=== PATIENT | female | born 1995 | race Caucasian/White ===

== ENCOUNTER 2017-07-31 22:49 | Emergency (ER) | payer BC, OTHER ==
[~2017-07-31] VITALS: Ht 167.6 cm; Wt 87.1 kg
[~2017-07-31 22:49] MED LIST: BCPILLS PO; PHEN95TA10 PO
[2017-07-31 22:52] VITALS: TEMP 36; Ht 167.6 cm; Wt 87.1 kg
[2017-07-31] MEDS ORDERED: ONDANSETRON INJ 2 MG/ML 2 ML VIAL IV STA (23:05)
[2017-07-31] MEDS ORDERED: SODIUM CHLORIDE 0.9% 1000ML 1,000 ML IV STA (23:05)
--- NOTE | 2017-07-31 23:09 | EMERGENCY ROOM VISIT NOTE ---
History Report prepared by Brock: Mikey Field Under the Supervision of: Dr. Mariam Yu D.O. First contact with patient: 22:55 Chief Complaint: VOMITING Stated Complaint: VOMITING,CHEST PAIN History of Present Illness The patient is a 21 year old female who presents to the Emergency Room with complaints of persistent vomiting and diarrhea that began at 1700 today, 6 hours prior to arrival. The patient states that her symptoms began at 1700 today while she was at work. The vomiting episodes onset first. Since this time she has also experienced multiple bouts of diarrhea, dizziness, abdominal pain, and chest pain. The abdominal pain began after the vomiting. She has also felt chills and has been sweaty. The patient works at a [employer] and states that she could have multiple sick contacts. She denies eating any unusual/poor tasting foods. She also denies any chance of or recent travels. 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 A total of 10 systems reviewed and were otherwise negative. Past Medical & Surgical Medical Problems: (1) Hypertension Family History Heart disease Hypertension Social History Smoking Status: Never Smoker Marital Status: in relationship Housing Status: lives with family Occupation Status: employed Current/Historical Medications Scheduled Dicyclomine Hcl (Bentyl), 20 MG PO Q8 Drospirenone-Ethinyl Estradiol ([place]), 1 TAB PO DAILY Prochlorperazine Maleate (Compazine), 5 MG PO Q8 Allergies Coded Allergies: Codeine (Verified Adverse Reaction, Mild, HTN and vomiting, 07/31/17) Physical Exam Vital Signs Date Time Temp Pulse Resp B/P (MAP) Pulse Ox O2 Delivery O2 Flow Rate FiO2 08/01/17 01:31 100 20 139/82 100 Room Air 07/31/17 22:52 36.0 125 20 145/84 100 Room Air Physical Exam GENERAL: alert, well appearing, well nourished, no distress, non-toxic EYE EXAM: normal conjunctiva, PERRL and EOM's grossly intact OROPHARYNX: no exudate, no erythema, lips, buccal mucosa, and tongue normal and mucous membranes are DRY. NECK: supple, no nuchal rigidity, no adenopathy, non-tender LUNGS: Clear to auscultation. Normal chest wall mechanics HEART: no murmurs, S1 normal and S2 normal ABDOMEN: abdomen soft, with mild upper quadrant pain, normo-active bowel sounds , no masses, no rebound or guarding. BACK: Back is symmetrical on inspection and there is no deformity, no midline tenderness, no CVA tenderness. SKIN: no rashes and no bruising UPPER EXTREMITIES: upper extremities are grossly normal. LOWER EXTREMITIES: No pitting edema. NEURO EXAM: Normal sensorium Medical Decision & Procedures ER Provider Diagnostic Interpretation: Radiology results have been interpreted by the radiologist and reviewed by me. Chest: A two view study of the chest: X-ray was reviewed and was negative for infiltrate, effusion, pneumothorax, or wide mediastinum. ABDOMINAL X-RAY: Abdominal x-ray was negative for SBO, no free air. Scattered air and stool present. Laboratory Results 07/31/17 23:15 Red Blood Count 4.82, Mean Corpuscular Volume 86.3, Mean Corpuscular Hemoglobin 29.5, Mean Corpuscular Hemoglobin Concent 34.1, Mean Platelet Volume 11.6, Neutrophils (%) (Auto) 91.6, Lymphocytes (%) (Auto) 4.0, Monocytes (%) (Auto) 3.6, Eosinophils (%) (Auto) 0.5, Basophils (%) (Auto) 0.1, Neutrophils # (Auto) 15.05, Lymphocytes # (Auto) 0.66, Monocytes # (Auto) 0.60, Eosinophils # (Auto) 0.09, Basophils # (Auto) 0.01 07/31/17 23:15 Test 07/31/17 23:15 07/31/17 23:30 White Blood Count 16.45 K/uL (4.8-10.8) Red Blood Count 4.82 M/uL (4.2-5.4) Hemoglobin 14.2 g/dL (12.0-16.0) Hematocrit 41.6 % (37-47) Mean Corpuscular Volume 86.3 fL (80-100) Mean Corpuscular Hemoglobin 29.5 pg (25-34) Mean Corpuscular Hemoglobin Concent 34.1 g/dl (32-36) Platelet Count 310 K/uL (130-400) Mean Platelet Volume 11.6 fL (7.4-10.4) Neutrophils (%) (Auto) 91.6 % Lymphocytes (%) (Auto) 4.0 % Monocytes (%) (Auto) 3.6 % Eosinophils (%) (Auto) 0.5 % Basophils (%) (Auto) 0.1 % Neutrophils # (Auto) 15.05 K/uL (1.4-6.5) Lymphocytes # (Auto) 0.66 K/uL (1.2-3.4) Monocytes # (Auto) 0.60 K/uL (0.11-0.59) Eosinophils # (Auto) 0.09 K/uL (0-0.5) Basophils # (Auto) 0.01 K/uL (0-0.2) RDW Standard Deviation 40.4 fL (36.4-46.3) RDW Coefficient of Variation 12.7 % (11.5-14.5) Immature Granulocyte % (Auto) 0.2 % Immature Granulocyte # (Auto) 0.04 K/uL (0.00-0.02) Anion Gap 10.0 mmol/L (3-11) Est Creatinine Clear Calc Drug Dose 108.4 ml/min Estimated GFR () 103.9 Estimated GFR (Non- 89.6 BUN/Creatinine Ratio 18.2 (10-20) Calcium Level 9.2 mg/dl (8.5-10.1) Total Bilirubin 0.4 mg/dl (0.2-1) Aspartate Amino Transf (AST/SGOT) 25 U/L (15-37) Alanine Aminotransferase (ALT/SGPT) 52 U/L (12-78) Alkaline Phosphatase 96 U/L (45-117) Total Protein 8.6 gm/dl (6.4-8.2) Albumin 4.0 gm/dl (3.4-5.0) Globulin 4.6 gm/dl (2.5-4.0) Albumin/Globulin Ratio 0.9 (0.9-2) Lipase 78 U/L (73-393) Human Chorionic Gonadotropin, Qual NEG (NEG) Influenza Type A Antigen Neg for Influ A (NEG) Influenza Type B Antigen Neg for Influ B (NEG) Laboratory results per my review. Medications Administered Medications (Trade) Dose Ordered Sig/Charli Route Start Time Stop Time Status Last Admin Dose Admin Sodium Chloride 1,000 ml @ 999 mls/hr Q1H1M STAT IV 07/31/17 23:05 08/01/17 00:05 DC 07/31/17 23:26 999 MLS/HR Ondansetron HCl (Zofran Inj) 4 mg NOW STAT IV 07/31/17 23:05 07/31/17 23:07 DC 07/31/17 23:26 4 MG Dicyclomine HCl (Bentyl Cap) 20 mg NOW ONCE PO 08/01/17 00:00 08/01/17 00:01 DC 08/01/17 00:33 20 MG Sodium Chloride 1,000 ml @ 999 mls/hr Q1H1M STAT IV 08/01/17 00:15 08/01/17 01:15 DC 08/01/17 00:40 999 MLS/HR Prochlorperazine Edisylate (Compazine Inj) 5 mg NOW STAT IV 08/01/17 00:15 08/01/17 00:16 DC 08/01/17 00:34 5 MG Diphenhydramine HCl (Benadryl Inj) 12.5 mg NOW STAT IV 08/01/17 00:15 08/01/17 00:16 DC 08/01/17 00:33 12.5 MG ED Course 2258: The patient was evaluated in room B3. A complete history and physical exam was performed. 2305: Ordered Zofran 4 mg IV, Sodium Chloride 1000 mL @ 999 mL/hr IV. 0000: Ordered Dicyclomine HCl 20 mg PO. 0014: I reevaluated the patient at this time. There is no change in her status. She is still nauseous. I will order additional medication. 0015: Ordered Benadryl 12.5 mg IV, Compazine 5 mg IV, Sodium Chloride 1000 mL @ 999 mL/hr IV. 0120: Upon reevaluation, the patient is feeling better, She is tolerating PO fluids and feels good to go home. I discussed the findings and the treatment plan with the patient. She verbalizes agreement and understanding. The patient was discharged home. Medical Decision Differential diagnosis: Etiologies such as gastroenteritis, food borne illness, infections, appendicitis , diverticulitis, inflammatory bowel disease, obstruction, GI bleed, biliary pathology, as well as others were entertained. Patient improved here following IV fluids and medications. Likely viral syndrome versus foodborne illness. Patient not immunocompromised no other recent exposures or travel. Patient's labs reassuring. Leukocytosis likely secondary to stress reaction from vomiting and diarrhea, doubt bacteremia/ sepsis. Doubt acute infectious colitis, mesenteric ischemia, volvulus, intussusception, peptic ulcer disease, occult GI bleed. Patient tolerated by mouth here, was well-appearing at time of discharge, ambulating with a steady gait, and no longer having any orthostatic symptoms. Medication Reconcilliation Current Medication List: was personally reviewed by me Blood Pressure Screening Patient's blood pressure: Elevated blood pressure Blood pressure disposition: Elevated BP felt to be situational Impression Primary Impression: Nausea, vomiting, and diarrhea Scribe Attestation The scribe's documentation has been prepared under my direction and personally reviewed by me in its entirety. I confirm that the note above accurately reflects all work, treatment, procedures, and medical decision making performed by me. Departure Information Dispostion Home / Self-Care Prescriptions Prochlorperazine Maleate (COMPAZINE) 5 Mg Tab 5 MG PO Q8 for Nausea, #10 TAB Prov: Mariam Yu, DO 08/01/17 Dicyclomine Hcl (BENTYL) 20 Mg Tab 20 MG PO Q8 for Pain, #20 TAB Prov: Mariam Yu, DO 08/01/17 Referrals No Doctor, Assigned (PCP) Patient Instructions My [facility] Additional Instructions Please sip clear liquids at frequent intervals to stay well-hydrated. Please eat a bland diet as tolerated. You may use the cramping medication as well as the nausea medication as provided. If you have any recurrent or worsening vomiting and diarrhea, noticed blood in your vomit or stool, develop fevers or chills, dizziness or passing out, worsening chest pain or trouble breathing, or you've any other new concerns, please return the emergency room.
[2017-07-31] MEDS ORDERED: DROS1TAB24 PO (23:27)
[2017-07-31 23:31] LABS: BASO % 0.1 %; BASO ABS # 0.01 K/uL (0-0.2); EOS % 0.5 %; EOS ABS # 0.09 K/uL (0-0.5); HEMATOCRIT 41.6 % (37-47); HEMOGLOBIN 14.2 g/dL (12.0-16.0); IG# 0.04 K/uL (0.00-0.02); LYMPH ABS # 0.66 K/uL (1.2-3.4); MEAN CELL VOLUME 86.3 fL (80-100); MEAN CORPUSCULAR HEMOGLOBIN 29.5 pg (25-34); MEAN CORPUSCULAR HGB CONC 34.1 g/dl (32-36); MEAN PLATELET VOLUME 11.6 fL (7.4-10.4); MONO % 3.6 %; NEUT % 91.6 %; NEUT ABS # 15.05 K/uL (1.4-6.5); PLATELET COUNT 310 K/uL (130-400); RED CELL DISTRIBUTION WIDTH CV 12.7 % (11.5-14.5); RED CELL DISTRIBUTION WIDTH SD 40.4 fL (36.4-46.3); WHITE BLOOD COUNT 16.45 K/uL (4.8-10.8)
[2017-08-01] MEDS ORDERED: DICYCLOMINE HCL 10 MG CAP PO ONE
[2017-08-01 00:01] LABS: CALCIUM 9.2 mg/dl (8.5-10.1); CREATININE 0.92 mg/dl (0.60-1.20); POTASSIUM 4.1 mmol/L (3.5-5.1)
[2017-08-01 00:04] LABS: TOTAL PROTEIN 8.6 gm/dl (6.4-8.2)
[2017-08-01] MEDS ORDERED: DiphenhydrAMINE HCL 50 MG/ML VIAL IV STA (00:15)
[2017-08-01] MEDS ORDERED: SODIUM CHLORIDE 0.9% 1000ML 1,000 ML IV STA (00:15)
[2017-08-01] MEDS ORDERED: PROCHLORPERAZINE 5 MG/ML 2 ML VIAL IV STA (00:15)
[2017-08-01 00:17] LABS: INFLUENZA B ANTIGEN Neg for Influ B (NEG)
[2017-08-01] MEDS ORDERED: PROC5TAB PO (01:13)
[2017-08-01] MEDS ORDERED: DICY20TA35 PO (01:13)
[2017-08-01 01:31] VITALS: BP 139/82; PULSE 100; O2SAT 100
--- NOTE | 2017-08-01 06:40 | DIAGNOSTIC IMAGING REPORT ---
ABDOMEN 2VIEW W/PA CHEST RTN CLINICAL HISTORY: Nausea, vomiting, diarrhea. COMPARISON STUDY: No previous studies for comparison. FINDINGS: The erect chest reveals no free air. There is no focal pulmonary consolidation. There are no pleural effusions. Erect and supine views the abdomen reveal no abnormally dilated loops of large or small bowel. There are no transition zones indicate bowel obstruction. There are scattered air-fluid levels present within the colon. Left lower quadrant ossifications while nonspecific likely represent phleboliths. IMPRESSION: No evidence of bowel obstruction. No evidence of free air. Electronically signed by: Rangel Mora M.D. 08/01/2017 6:39 AM Dictated Date/Time: 08/01/2017 6:38 AM
== END 2017-08-01 01:33 | disposition home or self-care (01) ==
LOC: C.EDB 22:51
DX: R11.2 Nausea with vomiting, unspecified (principal); R19.7 Diarrhea, unspecified; I10 Essential (primary) hypertension; Z82.49 Family history of ischemic heart disease and other diseases of the circulatory system

== ENCOUNTER 2017-08-04 16:38 | Emergency (ER) | payer OTHER ==
[~2017-08-04] VITALS: Ht 167.6 cm; Wt 86.7 kg
[~2017-08-04 16:38] MED LIST changes: -BCPILLS PO; +DICY20TA35 PO; +DROS1TAB24 PO; -PHEN95TA10 PO; +PROC5TAB PO
[2017-08-04 16:42] VITALS: Ht 167.6 cm; Wt 86.7 kg
[2017-08-04] MEDS ORDERED: KETOROLAC TROMETHAMINE 30 MG/ML VIAL IV STA (17:08)
[2017-08-04] MEDS ORDERED: ONDANSETRON INJ 2 MG/ML 2 ML VIAL IV STA (17:08)
[2017-08-04] MEDS ORDERED: SODIUM CHLORIDE 0.9% 1000ML 1,000 ML IV STA (17:08)
[2017-08-04] MEDS ORDERED: BCPILLS PO (17:45)
[2017-08-04 17:55] LABS: BASO % 0.5 %; BASO ABS # 0.04 K/uL (0-0.2); EOS % 5.4 %; EOS ABS # 0.47 K/uL (0-0.5); HEMATOCRIT 41.8 % (37-47); HEMOGLOBIN 14.1 g/dL (12.0-16.0); IG# 0.02 K/uL (0.00-0.02); LYMPH ABS # 3.12 K/uL (1.2-3.4); MEAN CORPUSCULAR HEMOGLOBIN 28.7 pg (25-34); MEAN CORPUSCULAR HGB CONC 33.7 g/dl (32-36); MEAN PLATELET VOLUME 11.9 fL (7.4-10.4); MONO % 8.3 %; MONO ABS # 0.72 K/uL (0.11-0.59); NEUT % 49.6 %; PLATELET COUNT 341 K/uL (130-400); RED CELL DISTRIBUTION WIDTH CV 12.4 % (11.5-14.5); RED CELL DISTRIBUTION WIDTH SD 38.6 fL (36.4-46.3); WHITE BLOOD COUNT 8.67 K/uL (4.8-10.8)
[2017-08-04 18:20] LABS: ALBUMIN 3.9 gm/dl (3.4-5.0); CALCIUM 9.4 mg/dl (8.5-10.1); CREATININE 0.78 mg/dl (0.60-1.20); POTASSIUM 3.8 mmol/L (3.5-5.1)
[2017-08-04 18:23] LABS: TOTAL PROTEIN 8.3 gm/dl (6.4-8.2)
--- NOTE | 2017-08-04 18:24 | DIAGNOSTIC IMAGING REPORT ---
BILIARY ULTRASOUND CLINICAL HISTORY: Upper abdominal pain COMPARISON STUDY: No previous studies for comparison. FINDINGS: The pancreas was obscured overlying bowel gas shadowing. The liver was echogenic consistent with hepatic steatosis. There is air presumed focal fatty sparing adjacent to gallbladder. No gallstones are visualized. There is no gallbladder wall thickening. There is no pericholecystic fluid. There is no ductal dilatation. The common bile duct measures 4 mm. There is no right-sided hydronephrosis. IMPRESSION: 1. Nondiagnostic evaluation the pancreas 2. Ultrasonographically normal gallbladder. No ductal dilatation 3. Echogenic liver, a nonspecific finding most often secondary to hepatic steatosis Electronically signed by: Rangel Mora M.D. 08/04/2017 6:22 PM Dictated Date/Time: 08/04/2017 6:21 PM
--- NOTE | 2017-08-04 18:35 | EMERGENCY ROOM VISIT NOTE ---
History First contact with patient: 16:46 Chief Complaint: VOMITING Stated Complaint: VOMITING Nursing Triage Summary: vomiting since thursday. was seen PCP today. told to come to the er History of Present Illness The patient is a 21 year old female who presents to the Emergency Room with complaints of abdominal pain She was here on Thursday for nausea, abdominal pain and diarrhea. She had a CXR, and lab work done which was significant for a WCC of 16. She was sent him with the diagnosis of viral gastritis. She continues to have RLQ abdominal pain that started on Thursday. The pain comes and goes and radiates to her R shoulder. She describes it as a sharp pain that lasts a couple minutes and she rates it as a 7/10 in severity. She continues to have diarrhea (non bloody) and she has been vomiting throughout the weekend and is unable to keep any food down. She has associated chills but no recorded fevers. She denies any dysuria, hematuria, vaginal bleeding, vaginal discharge, rashes, joint pain, shortness of breath or chest discomfort Review of Systems CONSTITUTIONAL: No fever, chills, + sweats or night sweats. No weight loss or weight gain. NEUROLOGIC: No headaches, dizziness or syncopal episodes. HEENT: No hearing or visual changes. No sinus or nasal issues. No mouth sores, thrush or oral lesions. CARDIOVASCULAR: No chest pain or palpitations. RESPIRATORY: No SOB, dyspnea, cough or hemoptysis. GASTROINTESTINAL:+ nausea, vomiting, diarrhea, no constipation, reflux, melena or hematochezia. GENITOURINARY: No dysuria, frequency, urgency, incontinence or hematuria. MUSCULOSKELETAL: no joint or muscle pain SKIN: No rashes or skin lesions. HEMATOLOGIC: No bleeding or abnormal bruising Past Medical/Surgical History Medical Problems: (1) Hypertension Family History Heart disease Hypertension Social History Smoking Status: Never Smoker Marital Status: in relationship Housing Status: lives with family Occupation Status: employed Current/Historical Medications Scheduled Control Pills ( Control Pills), 1 TAB PO DAILY Dicyclomine Hcl (Bentyl), 20 MG PO Q8 Prochlorperazine Maleate (Compazine), 5 MG PO Q8 Allergies NKDA Physical Exam Vital Signs Date Time Temp Pulse Resp B/P (MAP) Pulse Ox O2 Delivery O2 Flow Rate FiO2 08/04/17 18:33 36.6 92 18 147/78 99 Room Air 08/04/17 16:42 37.0 104 20 152/97 98 Room Air Physical Exam HEENT: Head - normocephalic and atraumatic. Pupils are equal, round, and reactive to light. Extraocular eye muscles are intact and sclera are anicteric. Ears - bilaterally patent canals with noninjected tympanic membranes and no evidence of hemotympanum. Nose - moist nasal mucosa without discharge. Mouth - moist buccal mucosa. Oropharynx is nonerythematous and there is no tonsillar exudate or edema noted. Neck: Supple; no JVD, nuchal rigidity, cervical lymphadenopathy, or auscultated bruits. Heart: Regular rate and rhythm. There is a normal S1 and S2 with no murmurs, clicks, or gallops appreciated. Lungs: Clear to auscultation bilaterally with no wheezes, rales, or rhonchi. Abdomen: Soft, completely nontender, nondistended, with good bowel sounds. There are no palpable pulsatile masses or hepatosplenomegaly. There is no guarding, rigidity, or rebound noted. Extremities: No evidence of cyanosis, clubbing, or edema. There are easily palpable peripheral pulses. Medical Decision & Procedures Laboratory Results 08/04/17 17:30 Red Blood Count 4.92, Mean Corpuscular Volume 85.0, Mean Corpuscular Hemoglobin 28.7, Mean Corpuscular Hemoglobin Concent 33.7, Mean Platelet Volume 11.9, Neutrophils (%) (Auto) 49.6, Lymphocytes (%) (Auto) 36.0, Monocytes (%) (Auto) 8.3, Eosinophils (%) (Auto) 5.4, Basophils (%) (Auto) 0.5, Neutrophils # (Auto) 4.30, Lymphocytes # (Auto) 3.12, Monocytes # (Auto) 0.72, Eosinophils # (Auto) 0.47, Basophils # (Auto) 0.04 08/04/17 17:30 Test 08/04/17 17:30 08/04/17 18:31 White Blood Count 8.67 K/uL (4.8-10.8) Red Blood Count 4.92 M/uL (4.2-5.4) Hemoglobin 14.1 g/dL (12.0-16.0) Hematocrit 41.8 % (37-47) Mean Corpuscular Volume 85.0 fL (80-100) Mean Corpuscular Hemoglobin 28.7 pg (25-34) Mean Corpuscular Hemoglobin Concent 33.7 g/dl (32-36) Platelet Count 341 K/uL (130-400) Mean Platelet Volume 11.9 fL (7.4-10.4) Neutrophils (%) (Auto) 49.6 % Lymphocytes (%) (Auto) 36.0 % Monocytes (%) (Auto) 8.3 % Eosinophils (%) (Auto) 5.4 % Basophils (%) (Auto) 0.5 % Neutrophils # (Auto) 4.30 K/uL (1.4-6.5) Lymphocytes # (Auto) 3.12 K/uL (1.2-3.4) Monocytes # (Auto) 0.72 K/uL (0.11-0.59) Eosinophils # (Auto) 0.47 K/uL (0-0.5) Basophils # (Auto) 0.04 K/uL (0-0.2) RDW Standard Deviation 38.6 fL (36.4-46.3) RDW Coefficient of Variation 12.4 % (11.5-14.5) Immature Granulocyte % (Auto) 0.2 % Immature Granulocyte # (Auto) 0.02 K/uL (0.00-0.02) Anion Gap 7.0 mmol/L (3-11) Est Creatinine Clear Calc Drug Dose 127.6 ml/min Estimated GFR () 126.8 Estimated GFR (Non- 109.4 BUN/Creatinine Ratio 14.1 (10-20) Calcium Level 9.4 mg/dl (8.5-10.1) Total Bilirubin 0.2 mg/dl (0.2-1) Aspartate Amino Transf (AST/SGOT) 38 U/L (15-37) Alanine Aminotransferase (ALT/SGPT) 77 U/L (12-78) Alkaline Phosphatase 96 U/L (45-117) Total Protein 8.3 gm/dl (6.4-8.2) Albumin 3.9 gm/dl (3.4-5.0) Globulin 4.4 gm/dl (2.5-4.0) Albumin/Globulin Ratio 0.9 (0.9-2) Urine Color YELLOW Urine Appearance CLEAR (CLEAR) Urine pH 5.5 (4.5-7.5) Urine Specific [place] 1.020 (1.000-1.030) Urine Protein NEG (NEG) Urine Glucose (UA) NEG (NEG) Urine Ketones NEG (NEG) Urine Occult Blood NEG (NEG) Urine Nitrite NEG (NEG) Urine Bilirubin NEG (NEG) Urine Urobilinogen NEG (NEG) Urine Leukocyte Esterase NEG (NEG) Urine Test NEG (NEG) Medications Administered Medications (Trade) Dose Ordered Sig/Charli Route Start Time Stop Time Status Last Admin Dose Admin Sodium Chloride 1,000 ml @ 999 mls/hr Q1H1M STAT IV 08/04/17 17:08 08/04/17 18:08 DC 08/04/17 17:34 999 MLS/HR Ondansetron HCl (Zofran Inj) 4 mg NOW STAT IV 08/04/17 17:08 08/04/17 17:12 DC 08/04/17 17:34 4 MG Ketorolac Tromethamine (Toradol Inj) 30 mg NOW STAT IV 08/04/17 17:08 08/04/17 17:12 DC 08/04/17 17:35 30 MG ED Course 1648: patient was seen in c10 and a full history and examination were performed 1710: I discussed the case with Dr. Granger and I ordered labs and gallbladder ultrasound and IV zofran, IV toradol and 1L IV NS 1845: the patient lab work returned as unremarkable. the patient continued to have symptoms but said she was feeling mildly better 0: the patient gallbladder US returned as normal. I reassessed the patient and she said she would follow up with her PCP. She was discharged Medical Decision Differential diagnosis: Etiologies such as appendicitis, diverticulitis, PUD, biliary pathology, UTI, pancreatitis, obstruction, mesenteric ischemia, aortic pathology, infections, inflammatory bowel disease, renal colic, as well as others were entertained. The patient came to the hospital for abdominal pain, vomiting and diarrhea. Her clinic examination was unremarkable, her vital signs were stable and she was without any abdominal pain on examination. Her CBC, CMP, UA, urine and gallbladder ultrasound were unremarkable. The patient was feeling better upon reexamination. She will be discharged home with follow up with her PCP for further workup on an outpatient basis. Impression Primary Impression: Nausea, vomiting, and diarrhea Departure Information Dispostion Home / Self-Care Condition GOOD Referrals Yohn, Marivel C.R.N.P. (PCP) Patient Instructions [facility]
[2017-08-04 19:55] VITALS: BP 141/77; PULSE 86; TEMP 37.2; O2SAT 98
--- NOTE | 2017-08-04 23:04 | EMERGENCY ROOM VISIT NOTE ---
ED Visit Note First contact with patient: 16:46 Resident Physician Supervision Note: I interviewed and examined the patient. Discussed with Dr. Wilkins and agree with findings and plan as documented in the note. This patient was advised to have a stool sample collected and sent for culture/C. difficile if the diarrhea persists. 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 The patient was not able to provide a stool specimen in the emergency department tonight. She is feeling improved and is had no further vomiting. She will be discharged with conservative management. She will return to the ER for worsening of symptoms or any medical concerns. Documented By: Kathryn Granger
== END 2017-08-04 20:00 | disposition home or self-care (01) ==
LOC: C.EDB 16:39 → C.EDC 20:00
DX: R11.2 Nausea with vomiting, unspecified (principal); R19.7 Diarrhea, unspecified; I10 Essential (primary) hypertension; Z79.3 Long term (current) use of hormonal contraceptives; Z82.49 Family history of ischemic heart disease and other diseases of the circulatory system

== ENCOUNTER 2018-03-07 15:38 | Emergency (ER) | payer OTHER ==
[~2018-03-07] VITALS: Ht 165.1 cm; Wt 86.0 kg
[2018-03-07 15:44] VITALS: TEMP 37; Ht 165.1 cm; Wt 86.0 kg
--- NOTE | 2018-03-07 16:08 | DIAGNOSTIC IMAGING REPORT ---
L FOOT MIN 3 VIEWS ROUTINE CLINICAL HISTORY: Left foot pain. COMPARISON: None FINDINGS: Tarsometatarsal joints are intact. No acute fracture within the left foot is identified. There is no suspicious osseous lesion. There is an apparent 3.1 cm lucent lesion within the anterior calcaneus. IMPRESSION: 1. No acute fracture or dislocation within the left foot. 2. Apparent 3.1 cm lucent lesion within the anterior process of the calcaneus. This has a benign imaging appearance and may reflect a cyst or intraosseous lipoma. Electronically signed by: Jose Juan Espino M.D. 03/07/2018 4:07 PM Dictated Date/Time: 03/07/2018 4:05 PM
[2018-03-07] MEDS ORDERED: IBUPROFEN 600 MG TAB PO STA (16:31)
[2018-03-07 17:18] VITALS: BP 133/89; PULSE 101; O2SAT 98
[2018-03-07] MEDS ORDERED: BCPILLS PO (17:45)
--- NOTE | 2018-03-09 06:17 | EMERGENCY ROOM VISIT NOTE ---
ED Visit Note First contact with patient: 15:54 Chief Complaint: Left foot pain. History of Present Illness: Ms. Orourke is a 22-year-old white female who is brought into the ED via wheelchair accompanied by male friend complaining of left foot pain. Patient reports less than an hour ago she was in bed and her left foot was entangled in a bed railing. She attempted to get out of bed and reports that she struck the indwelling but also twisted her foot and reports she had instant pain. Currently she is complaining of a sharp and throbbing pain over the top of the forefoot in the area of the tarsals and metatarsals. She rates her discomfort 10/10. Her pain is nonradiating. Her pain worsens with palpation, ambulation, weightbearing. She has not identified any alleviating factors related to the pain. She has not taken any medication for pain prior to arrival at the hospital. Associated with her pain patient reports she has a mild tingling sensation in the lateral 3 toes. She also denies any previous significant injuries or surgeries or trauma to this area. Review of Systems: As noted above in history of present illness. Past Medical History: Hypertension. Current Medications: control. Allergies to Medications: Codeine. Social History: Patient is currently employed; she feels safe in her home environment; she denies tobacco and alcohol use. Physical Examination: Vital Signs: Date Time Temp Pulse Resp B/P (MAP) Pulse Ox O2 Delivery O2 Flow Rate FiO2 03/07/18 17:18 101 20 133/89 98 03/07/18 15:44 37.0 111 18 146/82 99 Room Air GENERAL: 22-year-old female in mild distress due to pain, nontoxic-appearing, afebrile and hemodynamically stable. NEUROLOGICAL: Awake, alert and oriented to person, place and time. Answering questions appropriately and following commands. SKIN: Warm, dry and pink. No open soft tissue trauma noted. LEFT LOWER EXTREMITY: No gross bony deformity. Tenderness and swelling noted over the lateral cuneiform, cuboid and fourth and fifth metatarsals. Early bruising in this area. No palpable bony deformity or crepitus. Full range of motion in plantarflexion and dorsiflexion of the ankle in flexion and extension of all toes. No ligamentous laxity noted at the ankle. Distal pulses, sensation to light touch and capillary refill of all toes were noted. ED Course: Patient is assessed as noted above. Patient's medication list was reviewed. Patient was given 600 mg of ibuprofen by mouth and ice for pain and swelling. Left Foot X-Rays: Were read by myself and the radiologist and shows no acute fractures or dislocations. Radiologist did note a 3.1 cm lucency lesions within the anterior process of the calcaneus that appeared benign in appearance. Patient was placed in a postop shoe and nonweightbearing crutches. Patient was educated about today's findings and instructed on her treatment plan ; she verbalized understanding and agreement with this plan. Clinical Impression: Left foot contusion. Disposition: Patient discharged home in stable condition accompanied by her boyfriend; prior to departure she was reassessed and subjectively reported she was feeling much better and rated her discomfort 5/10. Plan: Comfort measures were discussed with the patient including rest, ice, elevation , postop shoe and nonweightbearing crutch use, and alternating ibuprofen and acetaminophen every 3 hours for persistent pain. Patient was encouraged to follow-up with resource specialist teacher if no better in 7 -10 days. Patient was encouraged return the ED for worsening/uncontrolled pain, uncontrolled swelling, worsening numbness/tingling or any new/concerning symptoms.
== END 2018-03-07 17:20 | disposition home or self-care (01) ==
LOC: C.EDB 15:39 → C.EDD 17:20
DX: S90.32XA Contusion of left foot, initial encounter (principal); X50.0XXA Overexertion from strenuous movement or load, initial encounter; I10 Essential (primary) hypertension; Z79.3 Long term (current) use of hormonal contraceptives; Z88.5 Allergy status to narcotic agent

== ENCOUNTER 2020-04-28 19:43 | Inpatient (IN) ==
[2020-04-28] MEDS ORDERED: LABETALOL HCL 200 MG TAB PO STA (20:32)
[2020-04-28] MEDS: LACTATED RINGER'S 1,000 ML IV PRN (20:40)
[2020-04-28] MEDS ORDERED: PENICILLIN G POTASSIUM 6 MU in DEXTROSE 5% 250 ML IV ONE (20:45)
[2020-04-28] MEDS ORDERED: MAG SULFATE BOLUS FROM BAG 4 GM IV ONE (20:53)
[2020-04-28] MEDS ORDERED: MAGNESIUM SULFATE 40GM / WTR 1,000 ML BAG IV ONE (20:58)
[2020-04-28] MEDS ORDERED: MAGNESIUM SULFATE 4GM / WTR 100 ML BAG IV ONE (20:58)
[2020-04-28] MEDS ORDERED: MAGNESIUM SULFATE / WTR 40 GM/1,000 ML BAG IV SCH (21:00)
[2020-04-28] MEDS ORDERED: MAG SULFATE BOLUS FROM BAG IV ONE (21:15)
[2020-04-28 21:17] LABS: Basophils # (auto) 0.01 K/uL (0-0.2); Basophils % (auto) 0.1 %; Eosinophils # (auto) 0.07 K/uL (0-0.5); Eosinophils % (auto) 0.4 %; Hematocrit (blood only) 36.9 % (37-47); Hemoglobin 12.5 g/dL (12.0-16.0); Immature Granulocytes # (auto) 0.08 K/uL (0.00-0.02); Immature Granulocytes % (auto) 0.5 %; Lymphocytes # (auto) 2.32 K/uL (1.2-3.4); Lymphocytes % (auto) 13.8 %; Mean Corpuscular Hgb Conc 33.9 g/dL (32-36); Mean Corpuscular Volume 88.7 fL (80-100); Mean Platelet Volume 12.5 fL (7.4-10.4); Monocytes # (auto) 0.86 K/uL (0.11-0.59); Monocytes % (auto) 5.1 %; Neutrophils # (auto) 13.44 K/uL (1.4-6.5); Neutrophils % (auto) 80.1 %; Platelet Count 278 K/uL (130-400); RDW Coefficient of Variation 13.8 % (11.5-14.5); RDW Standard Deviation 44.6 fL (36.4-46.3); Red Blood Count 4.16 M/uL (4.2-5.4); White Blood Count 16.78 K/uL (4.8-10.8)
[2020-04-28] MEDS ORDERED: BUTORPHANOL TARTRATE 1 MG/ML VIAL IV PRN (21:18)
[2020-04-28] MEDS ORDERED: BUTORPHANOL TARTRATE 1 MG/ML VIAL ONE (21:19)
[2020-04-28] MEDS ORDERED: NIFEdipine 10 MG CAP PO STA (21:21)
[2020-04-28] MEDS ORDERED: ONDANSETRON INJ 2 MG/ML 2 ML VIAL IV PRN (21:22)
[2020-04-28] MEDS ORDERED: NIFEdipine 10 MG CAP ONE (21:22)
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
[2020-04-28] MEDS ORDERED: ONDANSETRON INJ 2 MG/ML 2 ML VIAL ONE (21:23)
[2020-04-28] MEDS ORDERED: fentaNYL citrate 100 MCG/2 ML VIAL ONE (21:30)
[2020-04-28] MEDS ORDERED: BUPIVACAINE 0.25% 30 ML VIAL ONE (21:30)
[2020-04-28] MEDS ORDERED: ePHEDrine sulfate 50 MG/ML AMP ONE (21:30)
[2020-04-28 21:31] LABS: Partial Thromboplastin Ratio 0.9; Partial Thromboplastin Time 24.8 Seconds (21.0-31.0); Prothrombin Time 10.1 Seconds (9.0-12.0)
[2020-04-28] MEDS ORDERED: fentaNYL 2MCG/ML ROPIV 1.25MG/ML 100 ML BAG EPI ONE (21:31)
[2020-04-28 21:35] LABS: Creatinine Clr Calc Pharmacy 149.8 ml/min; Est GFR (African American) 141.5; Est GFR (Non-African American) 122.1
[2020-04-28] MEDS: LABETALOL HCL 200 MG TAB PO SCH (21:35)
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
[2020-04-28] MEDS ORDERED: OXYTOCIN 30 UNITS/500 ML BAG IV PRN (22:56)
[2020-04-29] MEDS ORDERED: PENICILLIN G POTASSIUM 3 MU in DEXTROSE 5% 100 ML IV PRN (00:15)
[2020-04-29] MEDS: LACTATED RINGER'S 1,000 ML IV PRN (00:32)
[2020-04-29] MEDS: AMOXICILLIN 500 MG CAP PO SCH ×3 (01:04→20:26)
[2020-04-29] MEDS ORDERED: OXYTOCIN 30 UNITS/500 ML BAG IV PRN ×2 (01:26→04:03)
[2020-04-29] MEDS ORDERED: NALOXONE HCL 1 MG in SODIUM CHLORIDE 0.9% 1000ML 1,000 ML IV PRN (01:58)
[2020-04-29] MEDS ORDERED: NALOXONE HCL 0.4 MG/1 ML VIAL/CARP IV PRN (01:58)
[2020-04-29] MEDS ORDERED: ePHEDrine sulfate 50 MG/ML AMP IV PRN (01:58)
[2020-04-29] MEDS ORDERED: ONDANSETRON INJ 2 MG/ML 2 ML VIAL IV PRN (01:58)
[2020-04-29] MEDS ORDERED: DiphenhydrAMINE HCL 50 MG/ML VIAL IV PRN (01:58)
[2020-04-29] MEDS ORDERED: fentaNYL 2MCG/ML ROPIV 1.25MG/ML 100 ML BAG EPI PRN (01:58)
[2020-04-29] MEDS ORDERED: bisacodyL 10 MG SUPP PR PRN (04:03)
[2020-04-29] MEDS ORDERED: SUPERCREAM 0.870% 15 GM JAR EXT PRN (04:03)
[2020-04-29] MEDS ORDERED: DIPHTHERIA/TETANUS/PERTUSSIS 0.5 ML SYR/VIAL IM ONE (04:03)
[2020-04-29] MEDS ORDERED: OXYCODONE/ACETAMINOPHEN 5mg/325mg TAB PO PRN (04:03)
[2020-04-29] MEDS ORDERED: HYDROCORTISONE ACETATE 25 MG SUPP PR PRN (04:03)
[2020-04-29] MEDS ORDERED: NIFEdipine 10 MG CAP PO STA (04:16)
[2020-04-29] MEDS ORDERED: NIFEdipine 10 MG CAP ONE (04:17)
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
--- NOTE | 2020-04-29 06:10 | Anesthesia Procedure Note ---
Date of Service April 29, 2020 Anesthesia Post Epidural Note Vital Signs Vital Signs: Temp Resp 36.7 C 18 04/28/20 19:47 04/28/20 19:47 Notes Mental Status: alert / awake / arousable and participated in evaluation Nausea / Vomiting: adequately controlled Pain: adequately controlled Airway Patency, RR, SpO2: stable & adequate BP & HR: stable & adequate Hydration State: stable & adequate Neuraxial Anesthesia: was administered and sensory block is resolving Anesthetic Complications: no major complications apparent and Pt Satisfied with anesthetic care Epidural: Removed without complications and With tip intact Notes: Epidural site clean, dry and intact. No signs of edema, erythema or bruising at insertion site. Pt instructed to request anesthesia if she has residual lower extremity numbness or if she develops lower extremity pain or weakness, back pain or headache.
[2020-04-29] MEDS: LABETALOL HCL 200 MG TAB PO SCH ×2 (06:30→20:26)
[2020-04-29] MEDS: PRENATAL VITAMIN 1 TAB PO SCH (08:30)
[2020-04-29] MEDS: DOCUSATE SODIUM 100 MG CAP PO SCH ×2 (08:30→20:26)
[2020-04-29] MEDS: VENLAFAXINE HCL XR 150 MG CAPXR PO SCH (08:30)
[2020-04-29] MEDS: ACETAMINOPHEN 325 MG TAB PO PRN ×2 (11:29→20:25)
[2020-04-29 11:39] LABS: Basophils # (auto) 0.01 K/uL (0-0.2); Basophils % (auto) 0.1 %; Eosinophils # (auto) 0.07 K/uL (0-0.5); Eosinophils % (auto) 0.5 %; Hematocrit (blood only) 34.6 % (37-47); Hemoglobin 11.4 g/dL (12.0-16.0); Immature Granulocytes # (auto) 0.07 K/uL (0.00-0.02); Immature Granulocytes % (auto) 0.5 %; Lymphocytes # (auto) 1.74 K/uL (1.2-3.4); Lymphocytes % (auto) 11.4 %; Mean Corpuscular Hemoglobin 29.3 pg (25-34); Mean Corpuscular Volume 88.9 fL (80-100); Mean Platelet Volume 12.2 fL (7.4-10.4); Monocytes # (auto) 1.17 K/uL (0.11-0.59); Monocytes % (auto) 7.7 %; Neutrophils % (auto) 79.8 %; Platelet Count 266 K/uL (130-400); RDW Coefficient of Variation 13.9 % (11.5-14.5); Red Blood Count 3.89 M/uL (4.2-5.4); White Blood Count 15.26 K/uL (4.8-10.8)
[2020-04-29 11:49] LABS: Partial Thromboplastin Ratio 0.8; Partial Thromboplastin Time 21.9 Seconds (21.0-31.0); Prothrombin Time 10.3 Seconds (9.0-12.0)
[2020-04-29 11:52] LABS: Mean Corpuscular Hgb Conc 32.9 g/dL (32-36)
[2020-04-29 12:00] LABS: Creatinine Clr Calc Pharmacy 141.7 ml/min; Est GFR (African American) 132.4; Est GFR (Non-African American) 114.2
[2020-04-29] MEDS: IBUPROFEN 600 MG TAB PO PRN (15:41)
[2020-04-30] MEDS: IBUPROFEN 600 MG TAB PO PRN ×4 (04:10→21:50)
--- NOTE | 2020-04-30 05:56 | Obstetrical Progress Note ---
Date of Service <Aubrey Negron MD - Last Filed: 04/30/20 06:53> April 30, 2020 Assessment & Plan <Aubrey Negron MD - Last Filed: 04/30/20 06:53> (1) Spontaneous vaginal delivery: Patsy is a 24 y/o female with a notable history of chronic HTN (w/ normal PIH labs) who is now PPD #1 following at 36-5/7 weeks. - Feels well today. Eating well, voiding well, ambulating well. - BPs stable throughout last night -- 116-130/80s , continue home labetalol; can consider increasing dose prior to d/c should pressures continue to rise - Pain well controlled with ibuprofen 600mg Q4H PRN. - Routine PPD care -- OOB, ambulation, diet progression as tolerated - After discharge will have [address] Horta. (2) Pre-eclampsia added to pre-existing hypertension: Subjective <Aubrey Negron MD - Last Filed: 04/30/20 06:53> aPtsy is a 24 y/o female who is now PPD #1 following at 36-5/7 weeks. Reports feeling well overall this morning. Some abdominal cramping, but pain well managed on analgesics. Voiding without difficulty. Tolerating meals overnight and able to ambulate some. Endorses passing gas. Some persistent lochia with some improvement this morning. Bottle feeding. Review of Systems Denies fever, chills, sweats Denies shortness of breath, difficulty breathing, chest pain, palpitations, chest pressure. Denies breast pain. Denies dysuria. Denies headache or changes in vision. Physical Exam <Aubrey Negron MD - Last Filed: 04/30/20 06:53> General: Alert, oriented. No acute distress. Cardiac: Regular rate and rhythm, no murmurs/rubs/gallops. Respiratory: Clear to auscultation bilaterally a/p, no wheezes/rales/rhonchi. No increased work of breathing. Symmetrical chest rise. No respiratory distress. Abdomen: Soft, nontender, nondistended. Bowel sounds present. Uterus: Uterine fundus firm, palpable 1cm below umbilicus. Lower Extremities: No lower extremity edema or swelling. No deep calf pain. Oli's negative bilaterally. Results & Data ([facility]) <Aubrey Negron MD - Last Filed: 04/30/20 06:53> Vital Signs (Past 12 Hours) Vital Signs Temp Pulse Pulse Resp BP BP Pulse Ox 04/30/20 04:05 36.5 C 90 18 116/79 04/30/20 00:20 36.6 C 97 H 18 132/87 04/29/20 19:35 36.9 C 95 H 18 154/94 H 149/95 H 100 <Nicole Rodriguez MD, FACOG - Last Filed: 04/30/20 07:10> Co-Signing Physician Notes Resident Physician Supervision Note: I was present with Dr. Aubrey Negron during the history and exam. I discussed the case with the resident and agree with the findings and plan as documented in the note. Any exceptions or clarifications are listed here: [None] Documented By: Nicole Rodriguez MD, FACOG Resident Activity Tracking <Aubrey Negron MD - Last Filed: 04/30/20 06:53> Resident Involvement: Resident Care Provided Care Provided: Adult Hospital Medicine and OB Delivery
[2020-04-30 06:55] LABS: Hematocrit (blood only) 35.1 % (37-47); Hemoglobin 10.7 g/dL (12.0-16.0); Mean Corpuscular Hemoglobin 27.7 pg (25-34); Mean Corpuscular Hgb Conc 30.5 g/dL (32-36); Mean Corpuscular Volume 90.9 fL (80-100); Mean Platelet Volume 12.2 fL (7.4-10.4); Platelet Count 307 K/uL (130-400); RDW Coefficient of Variation 14.2 % (11.5-14.5); RDW Standard Deviation 46.8 fL (36.4-46.3); Red Blood Count 3.86 M/uL (4.2-5.4); White Blood Count 10.96 K/uL (4.8-10.8)
[2020-04-30] MEDS: PRENATAL VITAMIN 1 TAB PO SCH (08:48)
[2020-04-30] MEDS: DOCUSATE SODIUM 100 MG CAP PO SCH ×2 (08:48→20:15)
[2020-04-30] MEDS: AMOXICILLIN 500 MG CAP PO SCH ×2 (08:48→20:15)
[2020-04-30] MEDS: VENLAFAXINE HCL XR 150 MG CAPXR PO SCH (08:49)
[2020-04-30] MEDS: LABETALOL HCL 200 MG TAB PO SCH ×2 (08:49→20:16)
[2020-04-30] MEDS ORDERED: bisacodyL 5 MG TABEC PO SCH (20:00)
[2020-05-01] MEDS: BENZOCAINE 20% AER SPR 82.5 GM CAN EXT PRN ×2 (01:17→08:12)
[2020-05-01] MEDS: IBUPROFEN 600 MG TAB PO PRN ×3 (01:18→12:20)
--- NOTE | 2020-05-01 06:15 | Obstetrical Progress Note ---
Date of Service <Aubrey Negron MD - Last Filed: 05/01/20 07:38> May 01, 2020 Assessment & Plan <Aubrey Negron MD - Last Filed: 05/01/20 07:38> (1) Spontaneous vaginal delivery: Patsy is a 24 y/o female with a notable history of chronic HTN (w/ normal PIH labs) who is now PPD #2 following at 36-5/7 weeks. - Feels well today. Eating well, voiding well, ambulating well. - BPs continue to be mildly elevated to around 130-150s/80-90s -- continue home labetalol 200mg PO b.i.d. - Pain well controlled with ibuprofen 600mg Q4H PRN. - Routine PPD care -- OOB, ambulation, diet progression as tolerated - After discharge will have [address] Horta. (2) Pre-eclampsia added to pre-existing hypertension: Subjective <Aubrey Negron MD - Last Filed: 05/01/20 07:38> Patsy is a 24 y/o female who is now PPD #2 following at 36-5/7 weeks. Reports feeling well overall this morning. Endorses some abdominal cramping that is well managed on analgesics. Voiding without difficulty. Tolerating meals overnight and able to ambulate some. Endorses passing gas. Some persistent lochia with some improvement this morning. Bottle feeding. Review of Systems Denies fever, chills, sweats Denies shortness of breath, difficulty breathing, chest pain, palpitations, chest pressure. Denies breast pain. Denies dysuria. Denies headache or changes in vision. Physical Exam <Aubrey Negron MD - Last Filed: 05/01/20 07:38> General: Alert, oriented. No acute distress. Cardiac: Regular rate and rhythm, no murmurs/rubs/gallops. Respiratory: Clear to auscultation bilaterally a/p, no wheezes/rales/rhonchi. No increased work of breathing. Symmetrical chest rise. No respiratory distress. Abdomen: Soft, nontender, nondistended. Bowel sounds present. Uterus: Uterine fundus firm, palpable 3 cm below umbilicus. Lower Extremities: No lower extremity edema or swelling. Clonus appreciated on left lower extremity (chronic). No deep calf pain. Oli's negative bilaterally. Results & Data ([facility]) <Aubrey Negron MD - Last Filed: 05/01/20 07:38> Vital Signs (Past 12 Hours) Vital Signs Temp Pulse Resp BP 05/01/20 00:00 36.8 C 110 H 18 138/89 <Kelton Moreno MD, FACOG - Last Filed: 05/01/20 07:39> Co-Signing Physician Notes Resident Physician Supervision Note: I was present with Dr. Negron during the history and exam. I discussed the case with the resident and agree with the findings and plan as documented in the note. Any exceptions or clarifications are listed here: [None] Documented By: Kelton Moreno MD, FACOG Resident Activity Tracking <Aubrey Negron MD - Last Filed: 05/01/20 07:38> Resident Involvement: Resident Care Provided Care Provided: Adult Hospital Medicine and OB Delivery
[2020-05-01 06:26] LABS: Hematocrit (blood only) 31.6 % (37-47)
[2020-05-01] MEDS ORDERED: DICLOFENAC SOD 1% GEL 100 GM TUBE EXT PRN (07:45)
[2020-05-01] MEDS: PRENATAL VITAMIN 1 TAB PO SCH (08:13)
[2020-05-01] MEDS: VENLAFAXINE HCL XR 150 MG CAPXR PO SCH (08:13)
[2020-05-01] MEDS: DOCUSATE SODIUM 100 MG CAP PO SCH (08:13)
[2020-05-01] MEDS: LABETALOL HCL 200 MG TAB PO SCH (08:13)
[2020-05-01] MEDS: AMOXICILLIN 500 MG CAP PO SCH (08:13)
== END 2020-05-01 16:00 | disposition home or self-care (01) | DRG 807 ==
LOC: OPB 19:43 → 4S1 19:45 → 4S2 04-29 09:55
DX: Z79.899 Other long term (current) drug therapy; Z3A.36 36 weeks gestation of pregnancy; O9A.22 Injury, poisoning and certain other consequences of external causes complicating childbirth; Z37.0 Single live birth; Z82.49 Family history of ischemic heart disease and other diseases of the circulatory system; Z79.82 Long term (current) use of aspirin; O70.0 First degree perineal laceration during delivery; W34.00XS Accidental discharge from unspecified firearms or gun, sequela; O99.344 Other mental disorders complicating childbirth; S24.103S Unspecified injury at T7-T10 level of thoracic spinal cord, sequela; Z86.718 Personal history of other venous thrombosis and embolism; O36.5930 Maternal care for other known or suspected poor fetal growth, third trimester, not applicable or unspecified; F41.8 Other specified anxiety disorders; O11.4 Pre-existing hypertension with pre-eclampsia, complicating childbirth; O77.0 Labor and delivery complicated by meconium in amniotic fluid